=== PATIENT | male | born 1970 | race Caucasian/White ===

== ENCOUNTER 2019-12-22 11:50 | Day surgery (SDC) | payer SELFPAY ==
[2019-12-22] VITALS (7 sets, daily range): BP systolic 109–147; BP diastolic 72–94; PULSE 78–134; RESP 18–20; TEMP 36.7; O2SAT 94–99; BMI 37.5
--- NOTE | 2019-12-22 12:08 | CA_ITS ---
APPROVED REPORT EXAM: Comprehensive 2D, Doppler, and color-flow Echocardiogram Cnc Machine Programmer: Rebecca Allen CRT Ht: 5 ft 6 in Wt: 233lbs BSA: 2.13 BP: 132/95 mmHg Indications: a flutter murmur, htn, sob Procedure After obtaining informed consent, patient underwent transesophageal echo in the [facility]. Type of Sedation : Conscious Sedation Sedation was administered by Paxton Amin C.R.N.A. Transesophageal probe was inserted and advanced into esophagus without difficulty by Dr. Tatiana Pérez. The KWABENA was performed without complications. Synchronized Cardioversion attempted: Synchronized Cardioversion acheived with 200 Joules after 1 attempt(s). Rhythm following Synchronized Cardioversion: Normal Sinus Rhythm Throughout the procedure, the blood pressure, pulse oximetry, cardiac rhythm, and rate were monitored. The patient tolerated the procedure without adverse effects. Recovery from conscious sedation was uneventful and vital signs were stable. Left Ventricle Normal left ventricular size mild concentric left ventricular hypertrophy visually estimated ejection fraction from the obtained views 55% with no regional wall motion abnormality in the obtained views. Right Ventricle Right ventricle is mildly enlarged with normal contractility Atria Left atrium is mildly enlarged, left atrial appendage is free of thrombus, there is good appendage flow by spectral Doppler. Right atrium is mildly enlarged Intra-atrial septum is intact, there is no flow across the intra-atrial septum. Aortic Valve Aortic valve is grossly normal, there is no aortic stenosis or aortic insufficiency. Mitral Valve Mitral valve is grossly normal, there is no mitral stenosis, there is mild mitral regurgitation. Tricuspid Valve Tricuspid valve is grossly normal, there is mild tricuspid regurgitation. Pulmonic Valve Pulmonic valve is grossly normal. Great Vessels Aortic root is normal size. Pericardium No significant pericardial effusion noted. Conclusion 1. Mild biatrial enlargement, no thrombus seen in the left atrium or left atrial appendage, there is good appendage flow by spectral Doppler. 2. Normal left ventricular size, mild concentric left ventricular hypertrophy preserved left ventricular systolic function, visually estimated ejection fraction 55% with no regional wall motion abnormality as described above. 3. Mildly enlarged right ventricle with normal contractility. 4. Mild mitral and tricuspid regurgitation. 5. No significant pericardial effusion noted. 6. Successful cardioversion to sinus rhythm. Electronically signed by : Dale Sánchez, 12/22/2019 13:47:36
[2019-12-22 12:37] LABS: Basophils # 0.1 K/mm3 (0-0.2); Eosinophils # 0.4 K/mm3 (0.0-0.4); Eosinophils % 2.9 % (0.1-12.0); Hematocrit 49.6 % (42.0-52.0); Hemoglobin 16.3 g/dL (14.1-18.0); Lymphocytes # 3.9 K/mm3 (0.7-4.5); Lymphocytes % 27.8 % (10-50); Mean Corpuscular HGB Conc 32.9 g/dL (31.8-35.4); Mean Corpuscular Hemoglobin 29.1 pg (27.0-31.2); Mean Corpuscular Volume 88.5 fl (80-94); Mean Platelet Volume 9.8 fl (7.4-10.4); Monocytes # 0.7 K/mm3 (0.1-1.0); Monocytes % 4.7 % (1.7-9.3); Neutrophils # 8.9 K/mm3 (1.8-7.8); Neutrophils % 63.7 % (37.0-80.0); Platelet Count 319 K/mm3 (142-424); Red Blood Count 5.61 M/mm3 (4.60-6.20); Red Cell Distribution Width 15.1 % (11.5-17.5)
--- NOTE | 2019-12-22 12:50 | HMH.ANESCL ---
[facility] Anesthesia Checklist - Patient Identification Patient Identification: Arm Band, Verbal (Name & ) - Structural Data Admitted From: Home Planned Operative Procedure/s: KWABENA with cardioversion Consent for Planned Operative Procedure(s) Verified: Yes Verified Documents: Surgical Consent, History and Physical - NPO Status Verified Time NPO: 07:30 - Chart Verification Results Verified: CBC - Additional verifications Anesthesia Reactions: No - Airway Assessment C-Spine Mobility Assessed: Yes TMJ Mobility Assessed: Yes Dentition: Good Dentition - Neurological Assessment Level of Consciousness: Awake, Alert, Appropriate, Follows Commands Hx Seizures: No Numbness or tingling in extremities: No - Anesthesia Plan Anesthesia Risk discussed: Yes Anesthesia Plan: Verified ASA Class: III Anesthesia Type: MAC [facility] History I have reviewed the patient's past medical history: Yes Medical History: Reports:: Arrhythmia, Atrial Fibrillation, Cardiomyopathy, Heart Murmur, Hypertension Denies:: Internal Pacemaker, Seizures *Have you ever received a pneumonia vaccine?: No *Have you received a flu vaccine this season?: No Comment:: obesity Anesthesia experience/problems:: no prior complications Other Surgeries: Yes: Appendectomy. No: Pacemaker Amputation: No Fractures: No - *Social History Educational Level: Attended High School Smoking Status: Former smoker Alcohol Intake: never Substance Use Type: denies use *Occupational Status:: employed Housing: house Household Members: spouse *Travel in the last 8 weeks: None Family Hx:: Coronary Artery Disease
[2019-12-22 12:58] LABS: Chloride 104 mmol/L (98-107)
[2019-12-22 12:59] LABS: Potassium 4.1 mmoL/L (3.5-5.1); Sodium 138 mmol/L (136-145)
[2019-12-22 13:01] LABS: Blood Urea Nitrogen 15 mg/dl (9-20); Creatinine Clearance Estimated 187 mL/min (50-200); Estimated Glomerular Filt Rate 119 ml/min (>60); GFR (African American) 144 ML/MIN (>60)
[2019-12-22 13:02] LABS: Anion Gap 12.1 mEq/L (5-15); Calcium 9.4 mg/dl (8.4-10.2); Carbon Dioxide 26 mmol/L (22.0-30.0); Glucose 131 mg/dl (74-100)
[2019-12-22 14:01] LABS: Triiodothryronine (T3) Uptake 33 % (23.5-40.5)
[2019-12-22 14:03] LABS: Free Thyroxine Index 2.7 ug/dL (5.93-13.13); T4 (Thyroxine) 8.1 ug/dl (5.53-11.0)
[2019-12-22 14:15] LABS: Thyroid Stimulating Hormone 1.45 uIU/mL (0.465-4.68)
== END 2019-12-22 13:35 | disposition home or self-care (01) ==
LOC: CATHLAB 11:53
PROVIDERS: Visit Provider Internal Medicine Cardiovascular Disease
DX: I48.92 Unspecified atrial flutter (principal); I10 Essential (primary) hypertension; Z79.899 Other long term (current) drug therapy
CPT/HCPCS: 36415; 80048; 84436; 84443; 84479; 85025; 92960; 93312

== ENCOUNTER → 2020-10-02 13:26 | Outpatient (CLI) | payer OTHER, SELFPAY | PROVIDERS: Visit Provider Internal Medicine | DX: G47.33 Obstructive sleep apnea (adult) (pediatric) (principal); I10 Essential (primary) hypertension; I48.3 Typical atrial flutter | CPT/HCPCS: 95806 ==

== ENCOUNTER → 2020-11-03 10:49 | Outpatient (CLI) | payer OTHER, SELFPAY ==
[2020-11-03 13:21] LABS: Coronavirus 19 IgG Antibody Negative (Negative); Coronavirus 19 IgM Antibody Negative (Negative)
== END ==
PROVIDERS: Visit Provider Internal Medicine Gastroenterology
DX: Z01.812 Encounter for preprocedural laboratory examination (principal); Z20.822 Contact with and (suspected) exposure to COVID-19; Z12.11 Encounter for screening for malignant neoplasm of colon
CPT/HCPCS: 36415; 86328

== ENCOUNTER 2020-11-05 06:59 | Day surgery (SDC) | payer OTHER, SELFPAY ==
[2020-10-30 09:22] VITALS: BMI 37.1
[2020-11-05] VITALS (8 sets, daily range): BP systolic 114–168; BP diastolic 61–111; PULSE 82–100; RESP 18–20; TEMP 36.4–36.9; O2SAT 97–99
--- NOTE | 2020-11-05 08:08 | HMH.PROC ---
[facility] Procedure Note Procedure Note:: Colonoscopy Procedure Report: Colonoscopy with cold biopsies Endoscopist: Chris Butt II, MD Referring physician: Demetrio Reynoso MD Date of Procedure: November 05, 2020 Equipment: Olympus 180 variable stiffness pediatric colonoscope Sedation: MAC sedation Indication: Mr. Burgess is a 50-year-old gentleman who is here for diagnostic colonoscopy. The patient has been having some blood with his bowel movements which is new. This began when he started Xarelto. His father had colon cancer at the age of 77. He reports no abdominal pain, weight loss or change in his bowel habits. Procedure: Prior to the procedure, a history and physical exam was performed, and patient's medications and allergies were reviewed. The risks, benefits and alternatives of the sedation and procedure were discussed with the patient. All questions were answered and informed consent was obtained. The patient was brought to the procedure room. Patient identification and proposed procedure were verified by the physician and the nurse. The patient was placed in a left lateral decubitus position and the scope was passed under direct vision. Throughout the procedure, the patient's blood pressure, pulse, and oxygen saturations were monitored continuously. The colonoscopy was accomplished without difficulty. The patient tolerated the procedure well. Findings: On digital rectal examination there was normal rectal tone. There were no external hemorrhoids. The prostate was 2+, smooth, soft, symmetric without nodules. There were no masses identified. The colonoscope was introduced through the anal canal to the rectum and advanced to the cecum. The ileocecal valve and appendiceal orifice were identified. The scope was advanced a short distance into the ileum which appeared grossly normal. The scope was then withdrawn into the colon. The cecum, ascending, transverse and descending colon were normal. There was mild melanosis coli. In the lower sigmoid colon was a circumferential mass lesion that extended from 25cm to 20-21 cm from the pectinate line (4 to 5 cm circumferential mass lesion). This was consistent with a lower sigmoid colon cancer. There was surface friability and multiple biopsies were obtained. There was loss of adhesive character to the tissue with biopsies. The rectum was normal and this was not palpable digitally. Upon retroflexion within the rectum there were grade 1 internal hemorrhoids.The preparation was excellent throughout with [place] Preparation Score of 9. The cecal time was 12 minutes. Impression: 1. 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 I will begin staging evaluation with chest, abdomen and pelvic CT scan today. I will also obtain CBC, iron studies and CEA level. I will discuss the case with the patient, family and surgery and based upon location, I will recommend colorectal surgery.
--- NOTE | 2020-11-05 08:42 | CT_ITS ---
PROCEDURE: CT ABDOMEN PELVIS W CON CLINICAL INDICATION: sigmiod colon cancer Sigmoid cancer follow-up, evaluate for metastasis COMPARISON: CT CT CHEST W CON from 11/05/2020 TECHNIQUE: IV Contrast: 75ML Isovue 370 Oral Contrast None Axial images obtained with sagittal and coronal reformats. All CT scans at the facility use one or more dose reduction, viz: automated exposure control, ma/kV adjustment per patient size (including targeted exams where dose is matched to indication, i.e. head), or iterative reconstruction technique. FINDINGS: Fatty liver. No focal liver lesion identified. The gallbladder has an unremarkable appearance. There is splenomegaly 14 cm. The pancreas has an unremarkable appearance. There are few small peripancreatic and periportal lymph nodes. The periportal nodes measure up to 3 x 1 cm. No adrenal mass. No renal or ureteral calculi or renal mass. No intestinal obstruction or free air. There is severe long segment mucosal thickening involving the sigmoid colon. The length of mucosal thickening is approximately 7 cm with the wall of the sigmoid colon measuring up to 1.3 cm in thickness. There is some minimal punctate calcification in the wall of the sigmoid colon. There is some irregularity of the serosal aspect of the thickened sigmoid colon as well as small nodular opacities in the [place] sigmoid region consistent with small local nodes with the largest nodular region measuring approximately 1.6 cm. Small amount fluid is present in the pelvic region on the right. There are least 3 small sclerotic foci within the ilium on the right. The largest measures 10 mm. These are nonspecific. There are degenerative changes in the lumbar spine with grade 1 spondylitic spondylolisthesis of L5 on S1 and degenerative disc disease at that level. IMPRESSION: 1. Sigmoid mass consistent with neoplasm. There is irregularity of the serosal surface suspicious for serosal spread of carcinoma with mildly prominent nodes in this region suspicious for raphael spread. 2. No evidence of hepatic metastasis. 3. Mildly prominent periportal lymph nodes. These are nonspecific and may be reactive or secondary to neoplasm/metastasis. Continued follow-up suggested. Dictated by: Yuri Vences MD 11/05/2020 15:20 Yuri Vences MD in [place] 11/05/2020 15:20
--- NOTE | 2020-11-05 08:42 | CT_ITS ---
PROCEDURE: CT CHEST W CON CLINCAL INDICATION: sigmiod colon cancer Colon cancer, evaluate for metastatic disease COMPARISON: No exams were available for comparison TECHNIQUE: IV Contrast: 75ml Isovue 370 Axial images obtained with sagittal and coronal reformats. All CT scans at the facility use one or more dose reduction, viz: automated exposure control, ma/kV adjustment per patient size (including targeted exams where dose is matched to indication, i.e. head), or iterative reconstruction technique. FINDINGS: HEART AND MEDIASTINAL STRUCTURES: There are few small mediastinal lymph nodes. No dominant adenopathy. No mediastinal or hilar mass. There are few calcified subcarinal nodes. LUNGS AND PLEURAL SPACES: There are several small subpleural opacities in both ofelia thoraces. These are nonspecific. There is a calcified granuloma in the left lower lobe. There are some scattered areas of scarring. A 6 mm subpleural opacity is present in the right middle lobe region laterally and a 4 mm subpleural opacity in the right lower lobe laterally. There is a 6 mm nodule within the lingula and a 4 mm subpleural nodule in the left lower lobe laterally. There are few small fissural nodules which are nonspecific. BONY STRUCTURES: No acute bony abnormalities apparent. UPPER ABDOMEN: See abdomen report ADDITIONAL FINDINGS: Right-sided gynecomastia IMPRESSION: Scattered pleural and subpleural opacities. These are nonspecific and may be post inflammatory/infectious or neoplastic. Continued follow-up suggested in this patient with given history of sigmoid carcinoma. Dictated by: Yuri Vences MD 11/05/2020 15:00 Yuri Vences MD in [place] 11/05/2020 15:00
--- NOTE | 2020-11-05 09:07 | SUR.PHASEII ---
LAB AT BEDSIDE.
--- NOTE | 2020-11-05 09:17 | SUR.PHASEII ---
DR LAMA AT BEDSIDE EXPLAINING RESULTS OF SCOPE AND POC. PT AND COPING WELL AND ASKING APPROPRIATE QUESTIONS.
[2020-11-05 09:38] LABS: Basophils # 0.2 K/mm3 (0-0.2); Basophils % 1.6 % (0.1-2.0); Eosinophils # 0.6 K/mm3 (0.0-0.4); Eosinophils % 4.8 % (0.1-12.0); Hematocrit 55.3 % (42.0-52.0); Hemoglobin 17.7 g/dL (14.1-18.0); Mean Corpuscular HGB Conc 31.9 g/dL (31.8-35.4); Mean Corpuscular Hemoglobin 27.2 pg (27.0-31.2); Mean Corpuscular Volume 85.1 fl (80-94); Mean Platelet Volume 7.8 fl (7.4-10.4); Monocytes # 0.6 K/mm3 (0.1-1.0); Monocytes % 5.3 % (1.7-9.3); Neutrophils # 8.3 K/mm3 (1.8-7.8); Neutrophils % 71.4 % (37.0-80.0); Platelet Count 328 K/mm3 (142-424); Red Cell Distribution Width 15.9 % (11.5-17.5); White Blood Count 11.7 K/mm3 (4.8-10.8)
[2020-11-05 09:49] LABS: Chloride 100 mmol/L (98-107); Potassium 4.1 mmoL/L (3.5-5.1); Sodium 139 mmol/L (136-145)
[2020-11-05 09:51] LABS: Alanine Aminotransferase 26 U/L (12-78); Aspartate Amino Transferase 42 U/L (17-59); Blood Urea Nitrogen 12 mg/dl (9-20); Creatinine Clearance Estimated 159 mL/min (50-200); Estimated Glomerular Filt Rate 102 ml/min (>60); GFR (African American) 123 ML/MIN (>60)
[2020-11-05 09:52] LABS: Albumin Level 4.8 g/dl (3.5-5.0); Albumin/Globulin Ratio 1.3 (1.1-1.8); Alkaline Phosphatase 80 U/L (38-126); Anion Gap 14.1 mEq/L (5-15); Bilirubin,Total 1.1 mg/dl (0.2-1.3); Calcium 10.2 mg/dl (8.4-10.2); Carbon Dioxide 29 mmol/L (22.0-30.0); Globulin 3.6 g/dL (1.3-3.2); Glucose 130 mg/dl (74-100); Iron 74 ug/dL (49-181); Total Protein,Serum 8.4 g/dl (6.3-8.2)
[2020-11-05 10:02] LABS: Total Iron Binding Capacity 288 ug/dL (261-462)
[2020-11-05 10:26] LABS: Ferritin 59.7 ng/ml (17.9-464)
--- NOTE | 2020-11-05 10:50 | PC.NURSE ---
IV STAYING IN AT DISCHARGE FOR CT SCAN. RADIOLOGY TO DISCONTINUE.
--- NOTE | 2020-11-05 11:32 | SUR.PHASEII ---
PT TRANSPORTED TO CT PER RADIOLOGY.
--- NOTE | 2020-11-05 15:52 | HMH.ANESCL ---
[facility] Anesthesia Checklist - Structural Data Admitted From: Home Planned Operative Procedure/s: colon Consent for Planned Operative Procedure(s) Verified: Yes Verified Documents: Surgical Consent - Additional verifications Anesthesia Reactions: No - Anesthesia Plan Anesthesia Risk discussed: Yes Anesthesia Plan: Patient unable to respond/answer ASA Class: III Anesthesia Type: General [facility] History Medical History: Reports:: Arrhythmia, Atrial Fibrillation, Cardiomyopathy, Heart Murmur, Hypertension Denies:: Cancer, Diabetes Mellitus Type 1, Diabetes Mellitus Type 2, Internal Pacemaker, MRSA, Seizures *Have you ever received a pneumonia vaccine?: No *Have you received a flu vaccine this season?: No Anesthesia experience/problems:: none Other Surgeries: Yes: Appendectomy. No: Pacemaker Amputation: No Fractures: No - *Social History Smoking Status: Never smoker Alcohol Intake: never Substance Use Type: denies use *Occupational Status:: employed Housing: house Household Members: spouse *Travel in the last 8 weeks: None Family Hx:: Coronary Artery Disease
[2020-11-06 13:34] LABS: CEA 1.8 ng/mL (0.0-4.7)
== END 2020-11-05 11:30 | disposition home or self-care (01) ==
LOC: OUTP 07:02
PROVIDERS: Visit Provider Internal Medicine Gastroenterology
PROC: 0DJD8ZZ Inspection of Lower Intestinal Tract, Via Natural or Artificial Opening Endoscopic (ICD-10-PCS; CPT 45378; principal; 2020-11-05 08:00)
DX: C18.7 Malignant neoplasm of sigmoid colon; K64.0 First degree hemorrhoids; Z80.0 Family history of malignant neoplasm of digestive organs; Z79.01 Long term (current) use of anticoagulants; I10 Essential (primary) hypertension; I48.91 Unspecified atrial fibrillation; I42.9 Cardiomyopathy, unspecified; I49.9 Cardiac arrhythmia, unspecified; R01.1 Cardiac murmur, unspecified; Z90.49 Acquired absence of other specified parts of digestive tract; Z82.49 Family history of ischemic heart disease and other diseases of the circulatory system
CPT/HCPCS: 45380; 36415; 71260; 74177; 80053; 82378; 82728; 83540; 83550; 85025; Q9967

== ENCOUNTER → 2020-11-19 09:24 | Outpatient (CLI) | payer OTHER, SELFPAY | PROVIDERS: Visit Provider Nurse Practitioner Family | DX: Z01.818 Encounter for other preprocedural examination (principal); Z20.822 Contact with and (suspected) exposure to COVID-19; U07.1 COVID-19 | CPT/HCPCS: U0003 ==